=== PATIENT | female | born 2000 | race Caucasian/White ===

== ENCOUNTER 2024-09-22 15:10 | Emergency (ER) | payer SELFPAY ==
--- NOTE | ~2024-09-22 | CT_ITS ---
EXAMINATION: CT abdomen pelvis w con DATE: 09/22/2024 17:14 INDICATION: Periumbilical abdominal pain TECHNIQUE: Computed tomography (CT) of the abdomen and pelvis was performed with intravenous contrast . The dose-length product was 197.21 mGy-cm. COMPARISON: None. FINDINGS: The liver, spleen, adrenal glands, kidneys, pancreas and gallbladder are unremarkable. No enlarged lymph nodes in the abdomen and pelvis. Follicular changes identified in both ovaries. Thickening of the garcia of the distal half of the ascending colon, transverse colon, descending colon and sigmoid colon. The findings are likely due to colitis. No CT evidence for acute appendicitis. No compression fracture in the visualized spine. IMPRESSION: 1. Thickening of the garcia of the distal half of the ascending colon, transverse colon, descending co mila and sigmoid colon. The findings are likely due to colitis. 2. No CT evidence for acute appendicitis. Reviewed, dictated and finalized at location A. IMPRESSION: 1. Thickening of the garcia of the distal half of the ascending colon, transvers e colon, descending colon and sigmoid colon. The findings are likely due to col itis. 2. No CT evidence for acute appendicitis.
[2024-09-22 15:21] VITALS: BP 151/98; PULSE 83; RESP 16; TEMP 36.6; O2SAT 100
--- NOTE | 2024-09-22 15:27 | ED.ABDPAIN ---
HPI - Abdominal Pain General Chief Complaint: Abdominal Pain <Kira Fulton APRN - Last Filed: 09/22/24 15:41> Stated Complaint: abdominal pain, anxiety, N/V <Kira Fulton APRN - Last Filed: 09/22/24 15:41> Time Seen by Provider: 09/22/24 15:27 <Kira Fulton APRN - Last Filed: 09/22/24 15:41> Focused HPI: Patient is a 24-year-old female who presents to the ER with periumbilical pain that started this morning. She endorses nausea and vomiting associated with the pain. Patient endorses a history of a ovarian cyst rupture. She denies any urinary symptoms, recent fevers, or shortness of breath. Patient also endorses back pain. She reports she last drank alcohol a couple days ago. Pt endorses daily marijuana use. GENERAL: Ill-appearing, well-nourished, and in mild distress due to pain HEAD: Normocephalic, atraumatic. CHEST: Clear to auscultation. ?No respiratory distress. HEART: Regular rate and rhythm.? NEURO: ?Alert and oriented x3. Patient screened in triage and initial orders placed.? ?Additional care and disposition to be based upon?diagnostic testing and treatment. <Kira Fulton APRN - Last Filed: 09/22/24 15:41> History of Present Illness HPI narrative: Patient 24-year-old female who presents emergency department with chief complaint abdominal pain nausea vomiting patient reports that she has prior ovarian cyst rupture reports that she has some discomfort in her epigastric region the patient reports that her pain is doing little bit better since she was seen triage but does report that she has some discomfort in epigastric region currently <Johnny Whitney MD - Last Filed: 09/22/24 18:38> Related Data Allergies/Adverse Reactions: Allergies Allergy/AdvReac Type Severity Reaction Status Date / Time No Known Allergies Allergy Verified 09/22/24 15:17 <Kira Fulton APRN - Last Filed: 09/22/24 15:41> Review of Systems Review of Systems: A 10 system review of systems was completed on the patient and is negative except for what is stated in the HPI. Nursing and ancillary documentation was reviewed. <Johnny Whitney MD - Last Filed: 09/22/24 18:38> Exam Narrative: GENERAL: Well-appearing, well-nourished, and in no acute distress. HEAD: Normocephalic, atraumatic. EYES: PERRLA and EOMI. ENT: Nares clear, no rhinorrhea or epistaxis. Mucous membranes moist. NECK: Supple. CHEST: Clear to auscultation. No respiratory distress. HEART: Regular rate and rhythm. No murmur heard. Normal peripheral pulses. ABDOMEN: Soft, tenderness to palpation throughout the abdomen, nondistended, normal active bowel sounds. EXTREMITIES: Normal range of motion. No edema. SKIN: Warm, dry, no rash. NEURO: No focal deficits. Alert and oriented x3. PSYCH: Normal mood and affect. <Johnny Whitney MD - Last Filed: 09/22/24 18:38> Course Vital Signs Vital signs: Vital Signs Temperature 36.6 C 09/22/24 15:21 Pulse Rate 83 09/22/24 15:21 Respiratory Rate 16 09/22/24 15:21 Blood Pressure 151/98 H 09/22/24 15:21 Pulse Oximetry 100 09/22/24 15:21 Temperature 36.6 C 09/22/24 15:21 Pulse Rate 91 09/22/24 18:30 Respiratory Rate 20 09/22/24 18:30 Blood Pressure 98/51 L 09/22/24 18:30 Pulse Oximetry 98 09/22/24 18:30 <Kira Fulton APRN - Last Filed: 09/22/24 15:41> Vital Signs Temperature 36.6 C 09/22/24 15:21 Pulse Rate 83 09/22/24 15:21 Respiratory Rate 16 09/22/24 15:21 Blood Pressure 151/98 H 09/22/24 15:21 Pulse Oximetry 100 09/22/24 15:21 Temperature 36.6 C 09/22/24 15:21 Pulse Rate 91 09/22/24 18:30 Respiratory Rate 20 09/22/24 18:30 Blood Pressure 98/51 L 09/22/24 18:30 Pulse Oximetry 98 09/22/24 18:30 <Johnny Whitney MD - Last Filed: 09/22/24 18:38> MDM - Abdominal Pain MDM Narrative Medical decision making narrative: Differential diagnosis includes diverticulitis, colitis, appendicitis, ruptured ovarian cyst, gastroenteritis Laboratory studies were obtained on the patient showed a white count of 18.4 electrolytes showed a CO2 of 6 an anion gap of 27 lactic acid of 7.7 AST and ALT were slightly elevated at 97 133 respectively lipase was normal at 63 urinalysis showed 4+ ketones drug screen was positive for cannabinoids Patient's lactic acid did come down to 0.9 The patient did not want to stay in the hospital the patient was started on oral Cipro and Flagyl <Johnny Whitney MD - Last Filed: 09/22/24 18:38> Lab Data Result diagrams: 09/22/24 15:47 09/22/24 15:47 <Kira Fulton APRN - Last Filed: 09/22/24 15:41> Labs: Lab Results 09/22/24 09/22/24 09/22/24 Range/Units 15:47 16:40 16:54 WBC 18.4 H (4.5-10.0) K/mm3 RBC 4.57 (4.2-5.4) M/mm3 Hgb 13.2 (12.0-15.0) g/dL Hct 40.8 (37.0-47.0) % MCV 89.3 (80-100) fl MCH 28.9 (26-34) pg MCHC 32.4 (32-36) g/dl RDW 15.0 H (11.5-14.5) % Plt Count 302 (150-375) k/mm3 MPV 11.0 H (7.4-10.4) fl Immature Gran % (Auto) 0.4 (0-0.5) % Neut % (Auto) 88.3 H (45.5-73.1) % Lymph % (Auto) 8.5 L (18.3-44.2) % [place] % (Auto) 2.5 L (2.6-8.5) % Eos % (Auto) 0.0 (0-4.4) % Baso % (Auto) 0.3 (0.2-1.2) % Lymph # (Auto) 1.57 (0.9-3.2) K/mm3 [place] # (Auto) 0.5 (0.1-0.6) K/mm3 Eos # (Auto) 0.0 (0-0.3) K/mm3 Baso # (Auto) 0.1 (0.0-0.1) K/mm3 Abs Immat Gran (auto) 0.07 H (0.00-0.031) K/mm3 Absolute Neuts (auto) 16.3 H (1.3-6.7) K/mm3 Absolute Nucleated RBC 0.000 (0.0-0.012) K/mm3 Nucleated RBC % 0.0 (0.0-0.2) % PT 15.0 H (11.1-14.7) Seconds INR 1.2 APTT 31.8 (22.3-36.8) Seconds Sodium 142 (137-145) mmol/L Potassium 4.0 (3.4-5.0) mmol/L Chloride 109 H (98-107) mmol/L Carbon Dioxide 6 L (22-30) mmol/L Anion Gap 27 H (4-12) mmol/L BUN 17 (7-17) mg/dL Creatinine 0.73 (0.7-1.0) mg/dL Estim Creat Clear Calc 76 ml/min Estimated GFR > 60 (59 - ) Glucose 75 (65-110) mg/dL Lactic Acid 7.7 H* (0.7-2.0) mmol/L Calcium 10.3 H (8.4-10.2) mg/dL Total Bilirubin 0.6 (0.2-1.3) mg/dL AST 97 H (14-36) U/L ALT 133 H (6-35) U/L Alkaline Phosphatase 59 (38-126) U/L Total Protein 9.1 H (6.3-8.2) g/dL Albumin 5.4 H (3.5-5.1) g/dL Lipase 63 (23-300) U/L Urine Color Yellow (Yellow) Urine Appearance Clear (Clear) Urine pH 5.0 (5.0-9.0) Ur Specific [place] 1.018 (1.001-1.035) Urine Protein 1+ H (Negative) mg/dL Urine Glucose (UA) Negative (Negative) mg/dL Urine Ketones 4+ H (Negative) mg/dL Ur Blood (Man) 1+ H (Negative) Urine Nitrate Negative (Negative) Urine Bilirubin Negative (Negative) Urine Urobilinogen 0.2 (<2.0) mg/dL Leukocyte Esterase Rfl Negative (Negative) COOPER/UL Urine RBC 0-2 (0-2) /hpf Urine WBC 0-3 (0-3) /hpf Ur Squamous Epith Cells Rare (Few) /hpf Urine Bacteria Trace (None) /hpf POC Urine HCG, Qual Negative (Negative) Urine Opiates Screen Negative (Negative) Urine Methadone Screen Negative (Negative) Ur Barbiturates Screen Negative (Negative) Ur Phencyclidine Scrn Negative (Negative) Ur Amphetamine Screen Negative (Negative) U Benzodiazepines Scrn Negative (Negative) Urine Cocaine Screen Negative (Negative) U Cannabinoids Screen Positive A (Negative) 09/22/24 Range/Units 18:11 WBC (4.5-10.0) K/mm3 RBC (4.2-5.4) M/mm3 Hgb (12.0-15.0) g/dL Hct (37.0-47.0) % MCV (80-100) fl MCH (26-34) pg MCHC (32-36) g/dl RDW (11.5-14.5) % Plt Count (150-375) k/mm3 MPV (7.4-10.4) fl Immature Gran % (Auto) (0-0.5) % Neut % (Auto) (45.5-73.1) % Lymph % (Auto) (18.3-44.2) % [place] % (Auto) (2.6-8.5) % Eos % (Auto) (0-4.4) % Baso % (Auto) (0.2-1.2) % Lymph # (Auto) (0.9-3.2) K/mm3 [place] # (Auto) (0.1-0.6) K/mm3 Eos # (Auto) (0-0.3) K/mm3 Baso # (Auto) (0.0-0.1) K/mm3 Abs Immat Gran (auto) (0.00-0.031) K/mm3 Absolute Neuts (auto) (1.3-6.7) K/mm3 Absolute Nucleated RBC (0.0-0.012) K/mm3 Nucleated RBC % (0.0-0.2) % PT (11.1-14.7) Seconds INR APTT (22.3-36.8) Seconds Sodium (137-145) mmol/L Potassium (3.4-5.0) mmol/L Chloride (98-107) mmol/L Carbon Dioxide (22-30) mmol/L Anion Gap (4-12) mmol/L BUN (7-17) mg/dL Creatinine (0.7-1.0) mg/dL Estim Creat Clear Calc ml/min Estimated GFR (59 - ) Glucose (65-110) mg/dL Lactic Acid 0.9 (0.7-2.0) mmol/L Calcium (8.4-10.2) mg/dL Total Bilirubin (0.2-1.3) mg/dL AST (14-36) U/L ALT (6-35) U/L Alkaline Phosphatase (38-126) U/L Total Protein (6.3-8.2) g/dL Albumin (3.5-5.1) g/dL Lipase (23-300) U/L Urine Color (Yellow) Urine Appearance (Clear) Urine pH (5.0-9.0) Ur Specific [place] (1.001-1.035) Urine Protein (Negative) mg/dL Urine Glucose (UA) (Negative) mg/dL Urine Ketones (Negative) mg/dL Ur Blood (Man) (Negative) Urine Nitrate (Negative) Urine Bilirubin (Negative) Urine Urobilinogen (<2.0) mg/dL Leukocyte Esterase Rfl (Negative) COOPER/UL Urine RBC (0-2) /hpf Urine WBC (0-3) /hpf Ur Squamous Epith Cells (Few) /hpf Urine Bacteria (None) /hpf POC Urine HCG, Qual (Negative) Urine Opiates Screen (Negative) Urine Methadone Screen (Negative) Ur Barbiturates Screen (Negative) Ur Phencyclidine Scrn (Negative) Ur Amphetamine Screen (Negative) U Benzodiazepines Scrn (Negative) Urine Cocaine Screen (Negative) U Cannabinoids Screen (Negative) <Kira Fulton, ELECTROMEDICAL EQUIPMENT TECHNICIAN - Last Filed: 09/22/24 15:41> Lab Results 09/22/24 09/22/24 09/22/24 Range/Units 15:47 16:40 16:54 WBC 18.4 H (4.5-10.0) K/mm3 RBC 4.57 (4.2-5.4) M/mm3 Hgb 13.2 (12.0-15.0) g/dL Hct 40.8 (37.0-47.0) % MCV 89.3 (80-100) fl MCH 28.9 (26-34) pg MCHC 32.4 (32-36) g/dl RDW 15.0 H (11.5-14.5) % Plt Count 302 (150-375) k/mm3 MPV 11.0 H (7.4-10.4) fl Immature Gran % (Auto) 0.4 (0-0.5) % Neut % (Auto) 88.3 H (45.5-73.1) % Lymph % (Auto) 8.5 L (18.3-44.2) % [place] % (Auto) 2.5 L (2.6-8.5) % Eos % (Auto) 0.0 (0-4.4) % Baso % (Auto) 0.3 (0.2-1.2) % Lymph # (Auto) 1.57 (0.9-3.2) K/mm3 [place] # (Auto) 0.5 (0.1-0.6) K/mm3 Eos # (Auto) 0.0 (0-0.3) K/mm3 Baso # (Auto) 0.1 (0.0-0.1) K/mm3 Abs Immat Gran (auto) 0.07 H (0.00-0.031) K/mm3 Absolute Neuts (auto) 16.3 H (1.3-6.7) K/mm3 Absolute Nucleated RBC 0.000 (0.0-0.012) K/mm3 Nucleated RBC % 0.0 (0.0-0.2) % PT 15.0 H (11.1-14.7) Seconds INR 1.2 APTT 31.8 (22.3-36.8) Seconds Sodium 142 (137-145) mmol/L Potassium 4.0 (3.4-5.0) mmol/L Chloride 109 H (98-107) mmol/L Carbon Dioxide 6 L (22-30) mmol/L Anion Gap 27 H (4-12) mmol/L BUN 17 (7-17) mg/dL Creatinine 0.73 (0.7-1.0) mg/dL Estim Creat Clear Calc 76 ml/min Estimated GFR > 60 (59 - ) Glucose 75 (65-110) mg/dL Lactic Acid 7.7 H* (0.7-2.0) mmol/L Calcium 10.3 H (8.4-10.2) mg/dL Total Bilirubin 0.6 (0.2-1.3) mg/dL AST 97 H (14-36) U/L ALT 133 H (6-35) U/L Alkaline Phosphatase 59 (38-126) U/L Total Protein 9.1 H (6.3-8.2) g/dL Albumin 5.4 H (3.5-5.1) g/dL Lipase 63 (23-300) U/L Urine Color Yellow (Yellow) Urine Appearance Clear (Clear) Urine pH 5.0 (5.0-9.0) Ur Specific [place] 1.018 (1.001-1.035) Urine Protein 1+ H (Negative) mg/dL Urine Glucose (UA) Negative (Negative) mg/dL Urine Ketones 4+ H (Negative) mg/dL Ur Blood (Man) 1+ H (Negative) Urine Nitrate Negative (Negative) Urine Bilirubin Negative (Negative) Urine Urobilinogen 0.2 (<2.0) mg/dL Leukocyte Esterase Rfl Negative (Negative) COOPER/UL Urine RBC 0-2 (0-2) /hpf Urine WBC 0-3 (0-3) /hpf Ur Squamous Epith Cells Rare (Few) /hpf Urine Bacteria Trace (None) /hpf POC Urine HCG, Qual Negative (Negative) Urine Opiates Screen Negative (Negative) Urine Methadone Screen Negative (Negative) Ur Barbiturates Screen Negative (Negative) Ur Phencyclidine Scrn Negative (Negative) Ur Amphetamine Screen Negative (Negative) U Benzodiazepines Scrn Negative (Negative) Urine Cocaine Screen Negative (Negative) U Cannabinoids Screen Positive A (Negative) 09/22/24 Range/Units 18:11 WBC (4.5-10.0) K/mm3 RBC (4.2-5.4) M/mm3 Hgb (12.0-15.0) g/dL Hct (37.0-47.0) % MCV (80-100) fl MCH (26-34) pg MCHC (32-36) g/dl RDW (11.5-14.5) % Plt Count (150-375) k/mm3 MPV (7.4-10.4) fl Immature Gran % (Auto) (0-0.5) % Neut % (Auto) (45.5-73.1) % Lymph % (Auto) (18.3-44.2) % [place] % (Auto) (2.6-8.5) % Eos % (Auto) (0-4.4) % Baso % (Auto) (0.2-1.2) % Lymph # (Auto) (0.9-3.2) K/mm3 [place] # (Auto) (0.1-0.6) K/mm3 Eos # (Auto) (0-0.3) K/mm3 Baso # (Auto) (0.0-0.1) K/mm3 Abs Immat Gran (auto) (0.00-0.031) K/mm3 Absolute Neuts (auto) (1.3-6.7) K/mm3 Absolute Nucleated RBC (0.0-0.012) K/mm3 Nucleated RBC % (0.0-0.2) % PT (11.1-14.7) Seconds INR APTT (22.3-36.8) Seconds Sodium (137-145) mmol/L Potassium (3.4-5.0) mmol/L Chloride (98-107) mmol/L Carbon Dioxide (22-30) mmol/L Anion Gap (4-12) mmol/L BUN (7-17) mg/dL Creatinine (0.7-1.0) mg/dL Estim Creat Clear Calc ml/min Estimated GFR (59 - ) Glucose (65-110) mg/dL Lactic Acid 0.9 (0.7-2.0) mmol/L Calcium (8.4-10.2) mg/dL Total Bilirubin (0.2-1.3) mg/dL AST (14-36) U/L ALT (6-35) U/L Alkaline Phosphatase (38-126) U/L Total Protein (6.3-8.2) g/dL Albumin (3.5-5.1) g/dL Lipase (23-300) U/L Urine Color (Yellow) Urine Appearance (Clear) Urine pH (5.0-9.0) Ur Specific [place] (1.001-1.035) Urine Protein (Negative) mg/dL Urine Glucose (UA) (Negative) mg/dL Urine Ketones (Negative) mg/dL Ur Blood (Man) (Negative) Urine Nitrate (Negative) Urine Bilirubin (Negative) Urine Urobilinogen (<2.0) mg/dL Leukocyte Esterase Rfl (Negative) COOPER/UL Urine RBC (0-2) /hpf Urine WBC (0-3) /hpf Ur Squamous Epith Cells (Few) /hpf Urine Bacteria (None) /hpf POC Urine HCG, Qual (Negative) Urine Opiates Screen (Negative) Urine Methadone Screen (Negative) Ur Barbiturates Screen (Negative) Ur Phencyclidine Scrn (Negative) Ur Amphetamine Screen (Negative) U Benzodiazepines Scrn (Negative) Urine Cocaine Screen (Negative) U Cannabinoids Screen (Negative) <Johnny Whitney MD - Last Filed: 09/22/24 18:38> Imaging Data Radiologist's impression: ITS Impressions Abdomen/Pelvis CT 09/22/24 17:15 IMPRESSION: 1. Thickening of the garcia of the distal half of the ascending colon, transverse colon, descending colon and sigmoid colon. The findings are likely due to colitis. 2. No CT evidence for acute appendicitis. <Kira Fulton APRN - Last Filed: 09/22/24 15:41> ITS Impressions Abdomen/Pelvis CT 09/22/24 17:15 IMPRESSION: 1. Thickening of the garcia of the distal half of the ascending colon, transverse colon, descending colon and sigmoid colon. The findings are likely due to colitis. 2. No CT evidence for acute appendicitis. <Johnny Whitney MD - Last Filed: 09/22/24 18:38> Discharge Plan Discharge Clinical Impression: Colitis <Kira Fulton APRN - Last Filed: 09/22/24 15:41> Patient Disposition: Home <Kira Fulton APRN - Last Filed: 09/22/24 15:41> Condition: Stable <Kira Fulton APRN - Last Filed: 09/22/24 15:41> Instructions: Antibiotic Form, Abdominal Pain (ED), Colitis (ED) <Kira Fulton APRN - Last Filed: 09/22/24 15:41> Patient Language: Croatian <Kira Fulton APRN - Last Filed: 09/22/24 15:41> Prescriptions: New ciprofloxacin HCl 500 mg tablet 500 mg PO Q12H 10 Days Qty: 20 0RF metronidazole 500 mg tablet 500 mg PO Q8H 10 Days Qty: 30 0RF ondansetron 4 mg tablet,disintegrating 4 mg PO Q8H PRN (Reason: nausea and vomiting) Qty: 10 0RF <Kira Fulton APRN - Last Filed: 09/22/24 15:41> Follow-up/Referrals: PHYSICIAN,SUGARCANE RESEARCH TECHNICIAN [Primary Care Provider] - Maurice Palmer MD [Physician] - <Kira Fulton APRN - Last Filed: 09/22/24 15:41> Time of Disposition: 18:37 <Kira Fulton APRN - Last Filed: 09/22/24 15:41> 18:37 <Johnny Whitney MD - Last Filed: 09/22/24 18:38>
[2024-09-22] MEDS: ONDANSETRON INJ 4 MG/2 ML VIAL IV PUSH (15:43)
[2024-09-22] MEDS: HALOPERIDOL LACTATE 5 MG/ML VIAL IM (15:46)
[2024-09-22 16:16] LABS: Hematocrit 40.8 % (37.0-47.0); Hemoglobin 13.2 g/dL (12.0-15.0); Immature Granulocyte Percent A 0.4 % (0-0.5); Lymphocytes Absolute Auto 1.57 K/mm3 (0.9-3.2); Mean Corpuscular HGB Conc 32.4 g/dl (32-36); Mean Corpuscular Hemoglobin 28.9 pg (26-34); Mean Corpuscular Volume 89.3 fl (80-100); Nucleated Red Blood Cells Absolute Auto 0.000 K/mm3 (0.0-0.012); Nucleated Red Blood Cells Perc 0.0 % (0.0-0.2); Platelet Count Result 302 k/mm3 (150-375); Red Blood Count 4.57 M/mm3 (4.2-5.4); White Blood Count 18.4 K/mm3 (4.5-10.0)
[2024-09-22 16:30] LABS: INR 1.2; Prothrombin Time 15.0 Seconds (11.1-14.7)
[2024-09-22 16:31] LABS: Partial Thromboplastin Time 31.8 Seconds (22.3-36.8)
[2024-09-22 16:43] LABS: BEDSIDEPREGUCG Negative (Negative)
[2024-09-22 16:43] LABS: Alanine Aminotransferase 133 U/L (6-35); Albumin Level 5.4 g/dL (3.5-5.1); Alkaline Phosphatase 59 U/L (38-126); Anion Gap 27 mmol/L (4-12); Aspartate Amino Transferase 97 U/L (14-36); Bilirubin,Total 0.6 mg/dL (0.2-1.3); Blood Urea Nitrogen 17 mg/dL (7-17); Calcium 10.3 mg/dL (8.4-10.2); Carbon Dioxide 6 mmol/L (22-30); Chloride 109 mmol/L (98-107); Estimated CRCL calculation 76 ml/min; Estimated Glomerular Filt Rate > 60; Glucose 75 mg/dL (65-110); Lipase 63 U/L (23-300); Potassium 4.0 mmol/L (3.4-5.0); Sodium 142 mmol/L (137-145); Total Protein 9.1 g/dL (6.3-8.2)
[2024-09-22] MEDS: SODIUM CHLORIDE 0.9% IV 1,000 ML 999 ML IV CONT ×2 (16:52)
[2024-09-22 16:56] VITALS: BP 105/62; PULSE 69; RESP 20; O2SAT 98
--- NOTE | 2024-09-22 16:59 | PC.NURSE ---
Pt states no relief with Haldol. States it only made her tired. States anxiety and nausea are still present
[2024-09-22 17:32] LABS: Add Urine Microscopic? YES; Appearance Urine Clear (Clear); Glucose Urine UA Negative (Negative); Leukocyte Esterase Ur Negative LEU/UL (Negative); Nitrate Urine Negative (Negative); Specific Grav Ur 1.018 (1.001-1.035)
[2024-09-22 17:35] LABS: Cannabinoid Screen Urine Positive (Negative)
[2024-09-22 18:30] VITALS: BP 98/51; PULSE 91; RESP 20; O2SAT 98
== END 2024-09-22 19:20 | disposition home or self-care (01) ==
PROVIDERS: Registered Nurse; Emergency Provider Emergency Medicine
DX: K52.9 Noninfective gastroenteritis and colitis, unspecified (principal)
CPT/HCPCS: 36415; 74177; 80053; 80307; 81001; 81025; 83605; 83690; 85025; 85610; 85730; 87040; 96361; 96372; 96374; 96375; 99284; J1200; J1630; J2405; J7030; Q9967